=== PATIENT | female | born 1940 | race African-American/Black ===

== ENCOUNTER 2022-05-29 15:53 | Emergency (ER) | payer OTHER ==
[~2022-05-29] VITALS: Ht 170.2 cm; Wt 104.0 kg
[2022-05-29] MEDS ORDERED: SODIUM CHLORIDE 0.9% 1,000 ML IV ONE (17:00)
[2022-05-29 17:44] LABS: BASOPHILS % 0.7 % (0.0-2.0); EOSINOPHILS % 0.8 % (0.0-5.0); HEMATOCRIT. 42.3 % (36.0-48.0); HEMOGLOBIN. 13.4 g/dL (12.0-16.0); LYMPHOCYTES % 19.6 % (20.0-50.0); MEAN CORPUSCULAR HEMOGLOBIN 25.1 pg (28.0-32.0); MEAN CORPUSCULAR VOLUME 79.1 fL (81.0-99.0); MEAN PLATELET VOLUME 9.4 fl (7.4-10.4); MONOCYTES % 7.8 % (2.0-8.0); NEUTROPHILS % 71.1 % (40.0-76.0); PLATELET 276 x1000/uL (130-400); RED BLOOD CELL COUNT 5.35 mill/uL (4.2-5.4); RED CELL DISTRIBUTION WIDTH 15.3 % (11.6-14.6)
[2022-05-29 17:51] LABS: CHLORIDE 100 mEq/L (98-107)
[2022-05-29 17:58] LABS: ETHANOL BLOOD < 10 mg/dL
[2022-05-29 21:43] LABS: CLARITY URINE CLEAR (CLEAR); COLOR URINE YELLOW (YELLOW); KETONES URINE TRACE (NEGATIVE); LEUKOCYTE ESTERASE URINE NEGATIVE (NEGATIVE); NITRITE URINE NEGATIVE (NEGATIVE); OCCULT BLOOD URINE NEGATIVE (NEGATIVE); PROTEIN URINE NEGATIVE (NEGATIVE); SPECIFIC GRAVITY URINE 1.017 (1.005-1.030); UROBILINOGEN URINE 0.2 E.U./dL (0.2-1.0)
[2022-05-29 21:58] LABS: *AMPHETAMINES SCREEN URINE NEGATIVE (NEGATIVE); *BARBITURATES SCREEN URINE NEGATIVE (NEGATIVE); *BENZODIAZEPINES SCREEN URINE NEGATIVE (NEGATIVE); *COCAINE SCREEN URINE NEGATIVE (NEGATIVE); CANNABINOID URINE SCREEN NEGATIVE (NEGATIVE); METHADONE URINE SCREEN NEGATIVE (NEGATIVE); OPIATES URINE SCREEN NEGATIVE (NEGATIVE); PHENCYCLIDINE URINE SCREEN NEGATIVE (NEGATIVE)
[2022-05-29] MEDS ORDERED: ASPIRIN 81MG TABLET PO ONE (22:00)
[2022-05-30] MEDS ORDERED: INSULIN REGULAR (HUMULIN R) 300UNITS/3ML VIAL SUBCUT ONE (00:30)
[2022-05-30] MEDS ORDERED: INSULIN REGULAR (HUMULIN R) 300UNITS/3ML VIAL SUBCUT NR (03:45)
[2022-05-30 09:51] VITALS: BP 144/72
== END 2022-05-30 10:16 | disposition short-term general hospital (02) ==
LOC: ER 15:53
DX: E11.65 Type 2 diabetes mellitus with hyperglycemia (principal); G93.40 Encephalopathy, unspecified; I48.92 Unspecified atrial flutter; I48.91 Unspecified atrial fibrillation; I44.4 Left anterior fascicular block; I10 Essential (primary) hypertension; R79.89 Other specified abnormal findings of blood chemistry; Z20.822 Contact with and (suspected) exposure to COVID-19; Z79.4 Long term (current) use of insulin
CPT/HCPCS: 36415; 70450; 71045; 80053; 80305; 80320; 81003; 82962; 83605; 84484; 85025; 85610; 87040; 87426; 93005; 96360; 96372; 99285; C9803; J1815; J7030; G0480

== ENCOUNTER 2022-11-10 16:47 | Inpatient (IN) | payer MEDICARE, OTHER ==
[~2022-11-10] VITALS: Ht 167.6 cm; Wt 89.8 kg
[2022-11-10] MEDS ORDERED: SODIUM CHLORIDE 0.9% 1000ML BAG (SEPSIS BOLUS) IV ONE (18:00)
[2022-11-10 18:04] LABS: CHLORIDE 108 mEq/L (98-107); INDEX HEMOLYSI 3 (1-3); INDEX ICTERIC 1 (1-4); INDEX LIPEMIC 1 (1-3); MEAN CORPUSCULAR HEMOGLOBIN 26.7 pg (28.0-32.0); MEAN CORPUSCULAR HGB CONC 30.4 g/dL (31.0-37.0); MEAN CORPUSCULAR VOLUME 87.8 fL (81.0-99.0); MEAN PLATELET VOLUME 9.3 fl (7.4-10.4); PLATELET 307 x1000/uL (130-400); POTASSIUM 4.3 mEq/L (3.5-5.1); RED BLOOD CELL COUNT 3.76 mill/uL (4.2-5.4); SODIUM 136 mEq/L (136-145); WHITE BLOOD COUNT 16.7 x1000/uL (4.5-11.0)
[2022-11-10 18:05] LABS: CLARITY URINE TURBID (CLEAR); COLOR URINE DARK YELLOW (YELLOW); GLUCOSE URINE NEGATIVE (NEGATIVE); KETONES URINE TRACE (NEGATIVE); LEUKOCYTE ESTERASE URINE 3+ (NEGATIVE); NITRITE URINE NEGATIVE (NEGATIVE); OCCULT BLOOD URINE 2+ (NEGATIVE); PROTEIN URINE 1+ (NEGATIVE); SPECIFIC GRAVITY URINE 1.018 (1.005-1.030)
[2022-11-10 18:06] LABS: DIFFERENTIAL COMMENT 1
[2022-11-10 18:18] LABS: ALANINE AMINOTRANSFERASE 19 IU/L (13-61); ALBUMIN 2.3 g/dL (3.4-5.0); ASPARTATE AMINOTRANSFERASE 22 IU/L (15-37); CARBON DIOXIDE 19 mEq/L (21-32); CREATININE 0.9 mg/dL (0.6-1.3); GLUCOSE 158 mg/dL (70-105); UREA NITROGEN BLOOD 18 mg/dL (7-21)
[2022-11-10 18:30] LABS: BACTERIA URINE 4+; SQUAMOUS EPITHELIAL CELL URINE 1+ /lpf (RARE/1+); WBC URINE TNTC /hpf (0-2)
[2022-11-10 18:33] LABS: LACTIC ACID 4.4 mmol/L (0.4-2.0); TROPONIN I HIGH SENSITIVITY 312 ng/L (<54)
[2022-11-10] MEDS ORDERED: PIPERACILLIN/TAZ 3.375G PREMIX 50 ML IV ONE (18:45)
[2022-11-10] MEDS ORDERED: VANCOMYCIN 1G PREMIX 200 ML IV ONE (18:45)
[2022-11-10 19:35] LABS: PLATELET ESTIMATE NORMAL
[2022-11-10 19:36] LABS: ANISOCYTOSIS 1+
[2022-11-10 21:13] LABS: INR 1.8; PROTHROMBIN TIME 18.8 sec (9.6-11.0)
[2022-11-10] MEDS ORDERED: DIPHENHYDRAMINE 50MG/ML VIAL IV PRN (22:45)
[2022-11-10] MEDS ORDERED: ACETAMINOPHEN 325MG TABLET PO PRN (22:45)
[2022-11-10] MEDS ORDERED: ONDANSETRON HCL 4MG/2ML INJ IV PRN (22:45)
[2022-11-10] MEDS: DEXT 5%/0.45% NACL 1000ML 1,000 ML IV SCH (22:59)
[2022-11-10] MEDS: MEROPENEM 1,000 MG in SODIUM CHLORIDE 0.9% 100 ML IV SCH (22:59)
[2022-11-10] MEDS: PANTOPRAZOLE SODIUM 40 MG/VIAL IV SCH (23:23)
[2022-11-10] MEDS: ENOXAPARIN 100MG/ML SYR SUBCUT SCH (23:25)
[2022-11-11] MEDS ORDERED: NOREPINEPHRINE 8 MG in DEXT 5% WATER 242 ML IV PRN ×2 (00:15→00:30)
[2022-11-11] MEDS ORDERED: DEXTROSE 50% WATER 50ML SYRINGE IV PRN (00:15)
[2022-11-11] MEDS: MEROPENEM 1,000 MG in SODIUM CHLORIDE 0.9% 100 ML IV SCH ×3 (06:42→22:35)
[2022-11-11] MEDS: BLOOD SUGAR DIAGNOSTIC STRIP TEST SCH ×4 (06:44→20:40)
[2022-11-11] MEDS: INSULIN LISPRO 100 UNITS/ML SUBCUT SCH ×5 (06:55→20:41)
[2022-11-11 08:00] VITALS: BP 114/68; PULSE 136; RESP 24; TEMP 97.9
[2022-11-11] MEDS: ENOXAPARIN 100MG/ML SYR SUBCUT SCH ×2 (09:00→20:40)
[2022-11-11] MEDS: PANTOPRAZOLE SODIUM 40 MG/VIAL IV SCH (09:00)
[2022-11-11 11:15] LABS: HEMATOCRIT. 29.9 % (36.0-48.0); HEMOGLOBIN. 8.9 g/dL (12.0-16.0); MEAN CORPUSCULAR HEMOGLOBIN 27.3 pg (28.0-32.0); MEAN CORPUSCULAR HGB CONC 29.9 g/dL (31.0-37.0); MEAN CORPUSCULAR VOLUME 91.2 fL (81.0-99.0); MEAN PLATELET VOLUME 9.3 fl (7.4-10.4); PLATELET 284 x1000/uL (130-400); RED BLOOD CELL COUNT 3.28 mill/uL (4.2-5.4); RED CELL DISTRIBUTION WIDTH 19.5 % (11.6-14.6); WHITE BLOOD COUNT 18.7 x1000/uL (4.5-11.0)
[2022-11-11 11:16] LABS: DIFFERENTIAL COMMENT 1
[2022-11-11 11:29] LABS: CALCIUM 7.5 mg/dL (8.5-10.1); CHLORIDE 115 mEq/L (98-107); INDEX HEMOLYSI 1 (1-3); INDEX ICTERIC 1 (1-4); INDEX LIPEMIC 1 (1-3); POTASSIUM 3.1 mEq/L (3.5-5.1); SODIUM 138 mEq/L (136-145)
[2022-11-11 11:34] LABS: CARBON DIOXIDE 17 mEq/L (21-32); CREATININE 0.7 mg/dL (0.6-1.3); GLUCOSE 227 mg/dL (70-105); UREA NITROGEN BLOOD 24 mg/dL (7-21)
[2022-11-11 11:35] LABS: BG CARBOXYHEMOGLOBIN 0.3 % (0.5-1.5); BG DEOXYHEMOGLOBIN 1.4 % (0.0-5.0); BG FRACTION INSPIRED OXYGEN 21; BG METHEMOGLOBIN 0.1 % (0.0-1.5); BG OXYGEN SATURATION 98.6 % (92.0-98.5); BG OXYHEMOGLOBIN 98.2 % (94.0-97.0); BG PCO2 25.3 mmHg (35.0-45.0); BG PH 7.444 (7.350-7.450); BG SAMPLE SITE LEFT RADIAL; BG TOTAL HEMOGLOBIN 9.3 g/dL (12.0-18.0); BG VENT MODE ROOM AIR
[2022-11-11 11:51] LABS: ANISOCYTOSIS 2+; HYPOCHROMASIA 1+; PLATELET ESTIMATE NORMAL
[2022-11-11] MEDS: DEXT 5%/0.45% NACL 1000ML 1,000 ML IV SCH (12:05)
[2022-11-11] MEDS: ACETAMINOPHEN 325MG TABLET PO PRN (14:05)
[2022-11-11 18:00] VITALS: BP 114/68; PULSE 136; RESP 24; TEMP 97.9
[2022-11-11 18:12] VITALS: BP 114/68; PULSE 136; RESP 24; TEMP 97.9
[2022-11-11 20:00] VITALS: BP 122/66; PULSE 130; RESP 21; TEMP 100
[2022-11-11] MEDS ORDERED: VANCOMYCIN 1,750 MG in DEXT 5% WATER 500 ML IV NR (20:00)
[2022-11-11 22:00] VITALS: BP 147/74; PULSE 140; RESP 24
[2022-11-11] MEDS ORDERED: DILTIAZEM HCL 5MG/ML 5ML VIAL IV NR (22:30)
[2022-11-11] MEDS ORDERED: POTASSIUM CHLORIDE INJ 40 MEQ in DEXT 5% WATER 500 ML IV NR (23:00)
[2022-11-12] VITALS (12 sets, daily range): BP systolic 101–132; BP diastolic 44–69; PULSE 96–150; RESP 20–37; TEMP 97.2–100.6
[2022-11-12] MEDS: DEXT 5%/0.45% NACL 1000ML 1,000 ML IV SCH (01:45)
[2022-11-12] MEDS ORDERED: DIGOXIN 50MCG/ML ORAL SYR PO ONE ×2 (03:15→07:15)
[2022-11-12] MEDS ORDERED: DIGOXIN 500MCG/2ML AMP IV NR ×5 (03:40→16:30)
[2022-11-12] MEDS: MEROPENEM 1,000 MG in SODIUM CHLORIDE 0.9% 100 ML IV SCH (05:18)
[2022-11-12] MEDS: BLOOD SUGAR DIAGNOSTIC STRIP TEST SCH ×4 (07:53→21:32)
[2022-11-12] MEDS: PANTOPRAZOLE SODIUM 40 MG/VIAL IV SCH (08:10)
[2022-11-12] MEDS: ENOXAPARIN 100MG/ML SYR SUBCUT SCH ×2 (08:11→21:20)
[2022-11-12] MEDS: INSULIN LISPRO 100 UNITS/ML SUBCUT SCH ×4 (08:16→21:21)
[2022-11-12] MEDS: SODIUM CHLORIDE 0.9% 1,000 ML IV SCH (10:54)
[2022-11-12] MEDS ORDERED: VANCOMYCIN 1G PREMIX 200 ML IV SCH ×2 (12:00→20:00)
[2022-11-12] MEDS ORDERED: POTASSIUM CHLORIDE 20MEQ TABLET SR PO NR (16:30)
[2022-11-12 16:42] LABS: CALCIUM 7.9 mg/dL (8.5-10.1); CARBON DIOXIDE 17 mEq/L (21-32); CHLORIDE 110 mEq/L (98-107); GLUCOSE 201 mg/dL (70-105); INDEX HEMOLYSI 1 (1-3); INDEX ICTERIC 1 (1-4); INDEX LIPEMIC 1 (1-3); POTASSIUM 3.4 mEq/L (3.5-5.1); SODIUM 135 mEq/L (136-145); UREA NITROGEN BLOOD 28 mg/dL (7-21)
[2022-11-12 16:46] LABS: PHOSPHORUS 1.2 mg/dL (2.5-4.9)
[2022-11-12] MEDS ORDERED: MEROPENEM 1,000 MG in SODIUM CHLORIDE 0.9% 100 ML IV SCH (17:00)
[2022-11-12] MEDS ORDERED: MAGNESIUM 4 G PREMIX 100 ML IV NR (18:30)
[2022-11-12] MEDS ORDERED: POTASSIUM PHOS,M-BASIC-D-BASIC 30 MMOL in DEXT 5% WATER 500 ML IV NR (18:30)
[2022-11-12] MEDS: CARVEDILOL 3.125 MG TABLET PO SCH (21:19)
[2022-11-12] MEDS: AMPICILLIN SOD/SULBACTAM NA 3 G in SODIUM CHLORIDE 0.9% 100 ML IV SCH (21:32)
[2022-11-13] VITALS (12 sets, daily range): BP systolic 110–134; BP diastolic 50–67; PULSE 84–101; RESP 20–36; TEMP 98–99.7
[2022-11-13] MEDS: AMPICILLIN SOD/SULBACTAM NA 3 G in SODIUM CHLORIDE 0.9% 100 ML IV SCH ×4 (02:16→22:13)
[2022-11-13] MEDS: SODIUM CHLORIDE 0.9% 1,000 ML IV SCH (05:27)
[2022-11-13] MEDS: BLOOD SUGAR DIAGNOSTIC STRIP TEST SCH ×4 (07:30→21:06)
[2022-11-13] MEDS: CARVEDILOL 3.125 MG TABLET PO SCH ×2 (09:21→21:06)
[2022-11-13] MEDS: PANTOPRAZOLE SODIUM 40 MG/VIAL IV SCH (09:21)
[2022-11-13] MEDS: ENOXAPARIN 100MG/ML SYR SUBCUT SCH ×2 (09:22→20:59)
[2022-11-13] MEDS: INSULIN LISPRO 100 UNITS/ML SUBCUT SCH ×4 (09:25→21:00)
[2022-11-13 14:52] LABS: BG BASE EXCESS -3.9 mmol/L (-2.0-2.0); BG CARBOXYHEMOGLOBIN 0.2 % (0.5-1.5); BG DEOXYHEMOGLOBIN 0.9 % (0.0-5.0); BG FRACTION INSPIRED OXYGEN 32; BG HCO3 ACT 18.1 mmol/L (22.0-26.0); BG METHEMOGLOBIN 0.3 % (0.0-1.5); BG OXYGEN SATURATION 99.1 % (92.0-98.5); BG OXYHEMOGLOBIN 98.6 % (94.0-97.0); BG PCO2 25.1 mmHg (35.0-45.0); BG PH 7.477 (7.350-7.450); BG PO2 138.6 mmHg (75.0-100.0); BG SAMPLE SITE LEFT BRACHIAL; BG VENT MODE NASAL CANNULA
[2022-11-13 16:08] LABS: HEMATOCRIT. 29.7 % (36.0-48.0); MEAN CORPUSCULAR HEMOGLOBIN 25.7 pg (28.0-32.0); MEAN CORPUSCULAR HGB CONC 30.4 g/dL (31.0-37.0); MEAN CORPUSCULAR VOLUME 84.7 fL (81.0-99.0); MEAN PLATELET VOLUME 10.7 fl (7.4-10.4); PLATELET 287 x1000/uL (130-400); RED BLOOD CELL COUNT 3.51 mill/uL (4.2-5.4); RED CELL DISTRIBUTION WIDTH 19.1 % (11.6-14.6); WHITE BLOOD COUNT 16.5 x1000/uL (4.5-11.0)
[2022-11-13 16:09] LABS: DIFFERENTIAL COMMENT 1
[2022-11-13 16:26] LABS: CHLORIDE 111 mEq/L (98-107); INDEX HEMOLYSI 1 (1-3); INDEX ICTERIC 1 (1-4); INDEX LIPEMIC 1 (1-3); POTASSIUM 3.9 mEq/L (3.5-5.1); SODIUM 135 mEq/L (136-145)
[2022-11-13 16:30] LABS: CALCIUM 8.3 mg/dL (8.5-10.1); CARBON DIOXIDE 17 mEq/L (21-32); CREATININE 0.7 mg/dL (0.6-1.3); GLUCOSE 184 mg/dL (70-105); PHOSPHORUS 2.3 mg/dL (2.5-4.9); UREA NITROGEN BLOOD 19 mg/dL (7-21)
[2022-11-13 17:53] LABS: ANISOCYTOSIS 2+; HYPOCHROMASIA 1+; PLATELET ESTIMATE NORMAL
[2022-11-14] VITALS (12 sets, daily range): BP systolic 108–142; BP diastolic 53–79; PULSE 68–94; RESP 10–29; TEMP 97.8–101.5
[2022-11-14] MEDS: AMPICILLIN SOD/SULBACTAM NA 3 G in SODIUM CHLORIDE 0.9% 100 ML IV SCH ×4 (01:42→21:05)
[2022-11-14] MEDS: SODIUM CHLORIDE 0.9% 1,000 ML IV SCH (01:42)
[2022-11-14 07:26] LABS: HEMATOCRIT. 24.6 % (36.0-48.0); HEMOGLOBIN. 7.8 g/dL (12.0-16.0); MEAN CORPUSCULAR HEMOGLOBIN 26.3 pg (28.0-32.0); MEAN CORPUSCULAR HGB CONC 31.8 g/dL (31.0-37.0); MEAN CORPUSCULAR VOLUME 82.7 fL (81.0-99.0); MEAN PLATELET VOLUME 10.2 fl (7.4-10.4); PLATELET 272 x1000/uL (130-400); RED BLOOD CELL COUNT 2.97 mill/uL (4.2-5.4); RED CELL DISTRIBUTION WIDTH 17.8 % (11.6-14.6); WHITE BLOOD COUNT 14.5 x1000/uL (4.5-11.0)
[2022-11-14 07:27] LABS: DIFFERENTIAL COMMENT 1
[2022-11-14] MEDS: BLOOD SUGAR DIAGNOSTIC STRIP TEST SCH ×4 (07:30→21:18)
[2022-11-14] MEDS: INSULIN LISPRO 100 UNITS/ML SUBCUT SCH ×4 (08:46→22:15)
[2022-11-14] MEDS: ENOXAPARIN 100MG/ML SYR SUBCUT SCH ×2 (08:47→21:10)
[2022-11-14] MEDS: FAMOTIDINE 20MG/2ML VIAL IV SCH ×2 (08:48→21:09)
[2022-11-14] MEDS: CARVEDILOL 3.125 MG TABLET PO SCH ×2 (08:48→21:10)
[2022-11-14 14:18] LABS: ANISOCYTOSIS 1+; PLATELET ESTIMATE NORMAL
[2022-11-14] MEDS: SODIUM HYPOCHLORITE 0.125% 473ML SOLUTION TOP SCH (16:04)
[2022-11-14] MEDS ORDERED: IPRATROPIUM/ALBUTEROL 0.5-3(2.5)MG/3ML NEB HHN PRN (16:15)
[2022-11-15] VITALS (12 sets, daily range): BP systolic 107–165; BP diastolic 52–79; PULSE 66–92; RESP 11–28; TEMP 97.8–100.9
[2022-11-15] MEDS: AMPICILLIN SOD/SULBACTAM NA 3 G in SODIUM CHLORIDE 0.9% 100 ML IV SCH ×4 (06:09→15:52)
[2022-11-15] MEDS: SODIUM CHLORIDE 0.9% 1,000 ML IV SCH ×2 (06:10→18:29)
[2022-11-15 06:54] LABS: BASOPHILS % 0.4 % (0.0-2.0); EOSINOPHILS % 4.5 % (0.0-5.0); HEMATOCRIT. 26.3 % (36.0-48.0); HEMOGLOBIN. 8.4 g/dL (12.0-16.0); LYMPHOCYTES % 11.1 % (20.0-50.0); MEAN CORPUSCULAR HEMOGLOBIN 26.8 pg (28.0-32.0); MEAN CORPUSCULAR VOLUME 83.7 fL (81.0-99.0); MEAN PLATELET VOLUME 9.9 fl (7.4-10.4); MONOCYTES % 5.9 % (2.0-8.0); NEUTROPHILS % 78.1 % (40.0-76.0); PLATELET 314 x1000/uL (130-400); RED BLOOD CELL COUNT 3.14 mill/uL (4.2-5.4); RED CELL DISTRIBUTION WIDTH 18.2 % (11.6-14.6); WHITE BLOOD COUNT 10.6 x1000/uL (4.5-11.0)
[2022-11-15 07:10] LABS: INR 1.2; PROTHROMBIN TIME 12.3 sec (9.6-11.0)
[2022-11-15] MEDS: BLOOD SUGAR DIAGNOSTIC STRIP TEST SCH ×4 (07:30→21:00)
[2022-11-15] MEDS: INSULIN LISPRO 100 UNITS/ML SUBCUT SCH ×4 (08:00→21:00)
[2022-11-15 08:07] LABS: CALCIUM 8.3 mg/dL (8.5-10.1); CHLORIDE 112 mEq/L (98-107); INDEX HEMOLYSI 1 (1-3); INDEX ICTERIC 1 (1-4); INDEX LIPEMIC 1 (1-3); POTASSIUM 3.4 mEq/L (3.5-5.1); SODIUM 140 mEq/L (136-145)
[2022-11-15 08:16] LABS: ALBUMIN 1.5 g/dL (3.4-5.0); CARBON DIOXIDE 20 mEq/L (21-32); CREATININE 0.6 mg/dL (0.6-1.3); GLUCOSE 128 mg/dL (70-105); PREALBUMIN 3.9 mg/dL (20.0-40.0); UREA NITROGEN BLOOD 14 mg/dL (7-21)
[2022-11-15] MEDS: ENOXAPARIN 100MG/ML SYR SUBCUT SCH ×2 (08:32→21:12)
[2022-11-15] MEDS: FAMOTIDINE 20MG/2ML VIAL IV SCH ×2 (08:32→21:00)
[2022-11-15] MEDS: SODIUM HYPOCHLORITE 0.125% 473ML SOLUTION TOP SCH (09:08)
[2022-11-15] MEDS: CARVEDILOL 3.125 MG TABLET PO SCH ×2 (09:08→21:11)
[2022-11-15] MEDS ORDERED: POTASSIUM CHLORIDE 20MEQ TABLET SR PO NR (14:00)
[2022-11-15] MEDS ORDERED: NALOXONE HCL 0.4MG/ML VIAL IV PRN (15:30)
[2022-11-15] MEDS: HYDROCODONE/ACETAMINOPHEN 5/325MG TABLET PO PRN (15:53)
[2022-11-15] MEDS: ACETAMINOPHEN 325MG TABLET PO PRN (21:16)
[2022-11-16] VITALS (8 sets, daily range): BP systolic 110–143; BP diastolic 53–73; PULSE 70–89; RESP 18–20; TEMP 97.4–98.8; O2SAT 100
[2022-11-16] MEDS: AMPICILLIN SOD/SULBACTAM NA 3 G in SODIUM CHLORIDE 0.9% 100 ML IV SCH ×4 (05:20→19:56)
[2022-11-16] MEDS: BLOOD SUGAR DIAGNOSTIC STRIP TEST SCH ×4 (06:42→21:00)
[2022-11-16] MEDS: ENOXAPARIN 100MG/ML SYR SUBCUT SCH ×2 (08:22→21:03)
[2022-11-16] MEDS: INSULIN LISPRO 100 UNITS/ML SUBCUT SCH ×4 (08:24→21:00)
[2022-11-16] MEDS: SODIUM HYPOCHLORITE 0.125% 473ML SOLUTION TOP SCH (08:29)
[2022-11-16] MEDS: CARVEDILOL 3.125 MG TABLET PO SCH ×2 (08:29→21:04)
[2022-11-16] MEDS: HYDROCODONE/ACETAMINOPHEN 5/325MG TABLET PO PRN ×2 (18:13→23:53)
[2022-11-16] MEDS: FAMOTIDINE 20MG TABLET PO SCH (21:04)
[2022-11-17] VITALS: BP 152/72; PULSE 85; RESP 18; TEMP 97.6
[2022-11-17] MEDS: AMPICILLIN SOD/SULBACTAM NA 3 G in SODIUM CHLORIDE 0.9% 100 ML IV SCH ×4 (03:02→22:18)
[2022-11-17 04:00] VITALS: BP 120/81; PULSE 73; RESP 20; TEMP 97.4
[2022-11-17] MEDS: BLOOD SUGAR DIAGNOSTIC STRIP TEST SCH ×4 (06:44→21:00)
[2022-11-17 08:00] VITALS: BP 138/79; PULSE 86; RESP 20; TEMP 98.6
[2022-11-17] MEDS: ENOXAPARIN 100MG/ML SYR SUBCUT SCH ×2 (09:38→22:24)
[2022-11-17] MEDS: CARVEDILOL 3.125 MG TABLET PO SCH ×2 (09:44→22:33)
[2022-11-17] MEDS: INSULIN LISPRO 100 UNITS/ML SUBCUT SCH ×4 (09:46→21:00)
[2022-11-17] MEDS: SODIUM HYPOCHLORITE 0.125% 473ML SOLUTION TOP SCH (09:46)
[2022-11-17 12:05] LABS: CHLORIDE 116 mEq/L (98-107); INDEX HEMOLYSI 2 (1-3); INDEX ICTERIC 1 (1-4); INDEX LIPEMIC 1 (1-3); POTASSIUM 4.1 mEq/L (3.5-5.1); SODIUM 140 mEq/L (136-145)
[2022-11-17 12:10] LABS: CALCIUM 8.4 mg/dL (8.5-10.1); CARBON DIOXIDE 16 mEq/L (21-32); CREATININE 0.4 mg/dL (0.6-1.3); GLUCOSE 188 mg/dL (70-105); UREA NITROGEN BLOOD 10 mg/dL (7-21)
[2022-11-17 12:11] VITALS: BP 140/66; PULSE 72; RESP 18; TEMP 97.2
[2022-11-17 16:00] VITALS: BP 122/94; PULSE 77; RESP 18; TEMP 98.6
[2022-11-17] MEDS: HYDROCODONE/ACETAMINOPHEN 5/325MG TABLET PO PRN (17:22)
[2022-11-17 20:00] VITALS: BP 143/64; PULSE 67; RESP 18; TEMP 97.9
[2022-11-17] MEDS: FAMOTIDINE 20MG TABLET PO SCH ×2 (21:00→23:24)
[2022-11-18 00:03] VITALS: BP 140/62; PULSE 69; RESP 18; TEMP 98
[2022-11-18 04:00] VITALS: BP 153/75; PULSE 72; RESP 18; TEMP 99.1
[2022-11-18] MEDS: BLOOD SUGAR DIAGNOSTIC STRIP TEST SCH ×4 (06:54→20:53)
[2022-11-18] MEDS: INSULIN LISPRO 100 UNITS/ML SUBCUT SCH ×5 (06:54→21:00)
[2022-11-18 08:00] VITALS: BP 114/46; PULSE 75; RESP 22; TEMP 97.4
[2022-11-18] MEDS: ENOXAPARIN 100MG/ML SYR SUBCUT SCH ×2 (09:52→20:52)
[2022-11-18] MEDS: CARVEDILOL 3.125 MG TABLET PO SCH ×2 (09:52→20:52)
[2022-11-18] MEDS: SODIUM HYPOCHLORITE 0.125% 473ML SOLUTION TOP SCH (09:52)
[2022-11-18 12:00] VITALS: BP 137/71; PULSE 81; RESP 20; TEMP 97.6
[2022-11-18] MEDS: HYDROCODONE/ACETAMINOPHEN 5/325MG TABLET PO PRN ×2 (12:01→16:53)
[2022-11-18 16:00] VITALS: BP 160/88; PULSE 77; RESP 18; TEMP 97.9
[2022-11-18 20:00] VITALS: BP 116/64; PULSE 70; RESP 20; TEMP 97.5
[2022-11-18] MEDS: FAMOTIDINE 20MG TABLET PO SCH (20:52)
[2022-11-19] VITALS: BP 114/53; PULSE 72; RESP 20; TEMP 97.3
[2022-11-19 04:00] VITALS: BP 118/48; PULSE 80; RESP 20; TEMP 97.2
[2022-11-19] MEDS: HYDROCODONE/ACETAMINOPHEN 5/325MG TABLET PO PRN ×4 (04:16→16:45)
[2022-11-19] MEDS: BLOOD SUGAR DIAGNOSTIC STRIP TEST SCH ×3 (06:51→16:45)
[2022-11-19 08:00] VITALS: BP 145/74; PULSE 85; RESP 16; TEMP 97.1
[2022-11-19] MEDS: INSULIN LISPRO 100 UNITS/ML SUBCUT SCH ×2 (08:10→12:17)
[2022-11-19] MEDS: ENOXAPARIN 100MG/ML SYR SUBCUT SCH (09:39)
[2022-11-19] MEDS: CARVEDILOL 3.125 MG TABLET PO SCH (09:39)
[2022-11-19] MEDS: SODIUM HYPOCHLORITE 0.125% 473ML SOLUTION TOP SCH (09:40)
[2022-11-19 12:00] VITALS: BP 159/68; PULSE 79; RESP 16; TEMP 97.6
[2022-11-19 16:00] VITALS: BP 127/57; PULSE 75; RESP 16; TEMP 97.5
[2022-11-19] MEDS ORDERED: INSULIN LISPRO 100 UNITS/ML SUBCUT SCH (18:10)
[2022-11-19] MEDS ORDERED: INSULIN GLARGINE 100 UNITS/ML SUBCUT SCH (22:00)
== END 2022-11-19 19:00 | disposition home or self-care (01) | DRG 853 ==
LOC: ER 16:47 → MICUSO 20:44 → EDBEDREQTM 21:02 → EDBEDREQ 21:02 → EDBEDREQSVC 11-11 13:57 → 5EST 11-11 17:39 → 7WST 11-15 20:49
PROVIDERS: ADMIT Internal Medicine; ATTEND Internal Medicine
PROC: 0KBP0ZZ Excision of Left Hip Muscle, Open Approach (ICD-10-PCS; principal; 2022-11-14)
PROC: 0KBN0ZZ Excision of Right Hip Muscle, Open Approach (ICD-10-PCS; 2022-11-14)
DX: A41.81 Sepsis due to Enterococcus (principal); G93.41 Metabolic encephalopathy; J96.01 Acute respiratory failure with hypoxia; R65.21 Severe sepsis with septic shock; L89.154 Pressure ulcer of sacral region, stage 4; N39.0 Urinary tract infection, site not specified; I82.432 Acute embolism and thrombosis of left popliteal vein; I48.20 Chronic atrial fibrillation, unspecified; F03.90 Unspecified dementia, unspecified severity, without behavioral disturbance, psychotic disturbance, mood disturbance, and anxiety; I10 Essential (primary) hypertension; Z20.822 Contact with and (suspected) exposure to COVID-19; E11.9 Type 2 diabetes mellitus without complications; D64.9 Anemia, unspecified; M19.90 Unspecified osteoarthritis, unspecified site; I48.91 Unspecified atrial fibrillation; Z88.5 Allergy status to narcotic agent; Z86.711 Personal history of pulmonary embolism; Z86.73 Personal history of transient ischemic attack (TIA), and cerebral infarction without residual deficits
CPT/HCPCS: 36415; 36600; 70551; 71045; 72131; 80048; 80053; 80202; 81003; 82040; 82375; 82805; 82962; 83036; 83605; 83735; 84100; 84134; 84145; 84484; 85025; 87070; 87077; 87186; 87426; 87804; 93005; 93970; 99291; C9113; J0295; J1160; J1200; J1650; J1815; J2185; J2543; J3370; J3475; J3480; J3490; J7030; J7050; J7060